=== PATIENT | female | born 1985 | race African-American/Black ===

== ENCOUNTER 2019-01-10 14:42 | Emergency (ER) | payer MEDICAID ==
[~2019-01-10] VITALS: Ht 170.2 cm; Wt 109.0 kg
[2019-01-10 15:36] VITALS: BP 149/128
[2019-01-10 17:58] LABS: CLARITY URINE CLOUDY (CLEAR); COLOR URINE DARK YELLOW (YELLOW); KETONES URINE TRACE (NEGATIVE); LEUKOCYTE ESTERASE URINE TRACE (NEGATIVE); NITRITE URINE NEGATIVE (NEGATIVE); OCCULT BLOOD URINE NEGATIVE (NEGATIVE); PH URINE 5.5 (4.5-8.0); PROTEIN URINE TRACE (NEGATIVE); SPECIFIC GRAVITY URINE 1.025 (1.005-1.030)
== END 2019-01-10 23:53 | disposition left against medical advice (07) ==
LOC: ER 14:42
DX: R10.9 Unspecified abdominal pain (principal); R11.2 Nausea with vomiting, unspecified; Z53.21 Procedure and treatment not carried out due to patient leaving prior to being seen by health care provider
CPT/HCPCS: 81025

== ENCOUNTER 2019-01-14 11:03 | Emergency (ER) | payer MEDICAID | END 2019-01-14 12:22 | disposition left against medical advice (07) | LOC: ER 11:03 | DX: R07.81 Pleurodynia (principal); Z53.21 Procedure and treatment not carried out due to patient leaving prior to being seen by health care provider ==

== ENCOUNTER 2020-07-09 16:14 | Emergency (ER) | payer MEDICAID ==
[~2020-07-09] VITALS: Ht 170.2 cm; Wt 105.0 kg
[2020-07-09 16:19] VITALS: BP 167/98
[2020-07-09] MEDS ORDERED: IBUPROFEN 600MG TABLET PO ONE (17:15)
== END 2020-07-09 18:02 | disposition home or self-care (01) ==
LOC: ER 16:14
DX: M79.602 Pain in left arm (principal); F12.10 Cannabis abuse, uncomplicated; F17.200 Nicotine dependence, unspecified, uncomplicated; Z98.890 Other specified postprocedural states; Z98.51 Tubal ligation status
CPT/HCPCS: 93971; 99284